=== PATIENT | male | born 1975 | race Caucasian/White ===

== ENCOUNTER 2018-07-14 10:52 | Emergency (ER) | payer BC ==
[2018-07-14] MEDS ORDERED: Ketorolac 60 MG/2 ML SDV IM ONE (11:32)
[2018-07-14] MEDS ORDERED: Diphtheria,Pertussis(Acell),Tetanus Vaccine 0.5 ML SDV IM ONE (11:32)
--- NOTE | 2018-07-14 11:38 | EDM.PDOC ---
ED HPI GENERAL MEDICAL PROBLEM - General Chief Complaint: General Stated Complaint: FELL OFF A LADDER 10 FT Time Seen by Provider: 07/14/18 11:20 Source of Information: Reports: Patient, RN History Limitations: Reports: No Limitations - History of Present Illness INITIAL COMMENTS - FREE TEXT/NARRATIVE: 42 yo male visiting from [place] fell off the top of his camper before arrival landing prone on a deck. He hit his chest and chin. No LOC, but does report a BARKER and chin and L jaw pain. No SOB. No tx prior to arrival. Is not sure about tetanus. Is here with via private vehicle. No nausea. Teeth fit properly. Has some leg abrasions. Onset: Today Onset Date: 07/14/18 Onset Time: 10:15 Duration: Minutes:, Constant Location: Reports: Head, Face, Chest Quality: Reports: Ache (head) Severity: Moderate Improves with: Reports: None Worsens with: Reports: None Context: Reports: Trauma Associated Symptoms: Reports: Chest Pain, Headaches. Denies: Diaphoresis, Fever /Chills, Nausea/Vomiting, Shortness of Breath Treatments [employer]IATE: Reports: Other (see below) (none) - Related Data Allergies Allergy/AdvReac Type Severity Reaction Status Date / Time acetaminophen [From Tylenol] Allergy Hives Verified 07/14/18 11:11 Home Meds: Home Meds NK [No Known Home Meds] 07/14/18 [History] Past Medical History - Past Surgical History GI Surgical History: Reports: Cholecystectomy Social & Family History - Tobacco Use Smoking Status *Q: Never Smoker ED ROS GENERAL - Review of Systems Review Of Systems: See Below Constitutional: Reports: No Symptoms HEENT: Reports: No Symptoms. Denies: Dental Pain, Ear Discharge, Ear Pain, Hearing Loss, Nosebleed, Vertigo Respiratory: Reports: No Symptoms Cardiovascular: Reports: No Symptoms Endocrine: Reports: No Symptoms GI/Abdominal: Reports: No Symptoms Skin: Reports: Wound (anterior leg abrasions.) Neurological: Reports: Headache. Denies: Confusion, Dizziness, Numbness, Syncope, Difficulty Walking, Change in Speech, Gait Disturbance Psychiatric: Reports: No Symptoms ED EXAM, GENERAL - Physical Exam Exam: See Below Exam Limited By: No Limitations General Appearance: Alert, WD/WN, No Apparent Distress Eye Exam: Bilateral Eye: Normal Inspection Ears: Normal External Exam, Normal Canal, Hearing Grossly Normal, Normal TMs Ear Exam: Bilateral Ear: Auricle Normal, Canal Normal, TM normal Nose: Normal Inspection, Normal Mucosa, No Blood Throat/Mouth: Normal Inspection, Normal Lips, Normal Teeth, Normal Oropharynx, Normal Voice, No Airway Compromise Head: Atraumatic, Normocephalic Neck: Normal Inspection, Supple, Non-Tender Respiratory/Chest: No Respiratory Distress, Lungs Clear, Normal Breath Sounds, No Accessory Muscle Use Cardiovascular: Regular Rate, Rhythm, No Edema GI/Abdominal: Normal Bowel Sounds, Soft, Non-Tender, No Distention Back Exam: Normal Inspection Extremities: Normal Range of Motion, Non-Tender, No Pedal Edema, Other (non- bleeding abrasions present to bilat. anterior legs.) Neurological: Alert, Oriented, CN II-XII Intact, Normal Cognition, No Motor/ Sensory Deficits Psychiatric: Normal Affect, Normal Mood Skin Exam: Warm, Dry, Normal Color, No Rash, Wound/Incision (anterior leg abrasions bilaterally.) Course - Vital Signs Last Recorded V/S: Last Vital Signs Temp 35.7 C 07/14/18 11:21 Pulse 60 07/14/18 11:21 Resp 17 07/14/18 11:21 BP 123/61 07/14/18 11:21 Pulse Ox 99 07/14/18 11:21 - Orders/Labs/Meds Orders: Active Orders 24 hr Category Date Time Status Vaccines to be Administered [RC] PER UNIT ROUTINE Care 07/14/18 11:32 Active Chest 1V Frontal [CR] Stat Exams 07/14/18 11:32 Taken Meds: Medications Discontinued Medications Generic Name Dose Route Start Last Admin Trade Name Florence PRN Reason Stop Dose Admin Diphtheria/Tetanus/Acell Pertussis 0.5 ml 07/14/18 11:32 07/14/18 11:43 Adacel IM 07/14/18 11:33 0.5 ml .ONCE ONE Administration Ketorolac Tromethamine 60 mg 07/14/18 11:32 07/14/18 11:42 Toradol IM 07/14/18 11:33 60 mg ONETIME ONE Administration - Radiology Interpretation Free Text/Narrative:: CXR-neg Departure - Departure Time of Disposition: 12:20 Disposition: Home, Self-Care 01 Condition: Good Clinical Impression: Sternal contusion Qualifiers: Encounter type: initial encounter Qualified Code(s): S20.219A - Contusion of unspecified front wall of thorax, initial encounter Mild concussion Qualifiers: Encounter type: initial encounter Loss of consciousness presence/duration: without LOC Qualified Code(s): S06.0X0A - Concussion without loss of consciousness, initial encounter Lower leg abrasion Qualifiers: Encounter type: initial encounter Laterality: unspecified laterality Qualified Code(s): S80.819A - Abrasion, unspecified lower leg, initial encounter - Discharge Information *PRESCRIPTION DRUG MONITORING PROGRAM REVIEWED*: No *COPY OF PRESCRIPTION DRUG MONITORING REPORT IN PATIENT JUSTINO: No Instructions: Head Injury, Adult, [id number] Referrals: PCP,None [Primary Care Provider] - Forms: ED Department Discharge Additional Instructions: Acetaminophen as needed. Ibuprofen as needed after 6 pm today. Rest. Protect your head from further injury over the next several days. Recheck if worse. - My Orders Last 24 Hours: My Active Orders 07/14/18 11:32 Vaccines to be Administered [RC] PER UNIT ROUTINE Chest 1V Frontal [CR] Stat - Assessment/Plan Last 24 Hours: My Active Orders 07/14/18 11:32 Vaccines to be Administered [RC] PER UNIT ROUTINE Chest 1V Frontal [CR] Stat
--- NOTE | 2018-07-14 12:53 | CRLCR ---
INDICATION: fall with sternal tenderness COMPARISON: None available. FINDINGS: Single frontal view of the chest demonstrates adequate inflation of the lungs. No focal airspace consolidation, pneumothorax or effusion. Cardiomediastinal silhouette is within normal limits. No acute osseous findings. - IMPRESSION: Negative single frontal view of the chest. - Given the provided history, consider lateral view for evaluation of the sternum, as clinically warranted. Dictated by Eleuteroi Gilmore MD @ 07/14/2018 12:51:02 PM Dictated by: Eleuterio Gilmore MD @ 07/14/2018 12:51:11 (Electronically Signed)
== END 2018-07-14 12:23 | disposition home or self-care (01) ==
LOC: JP.ED 10:52
DX: S06.0X0A Concussion without loss of consciousness, initial encounter (principal); S20.219A Contusion of unspecified front wall of thorax, initial encounter; S80.819A Abrasion, unspecified lower leg, initial encounter; Z23 Encounter for immunization; Z88.6 Allergy status to analgesic agent; W17.89XA Other fall from one level to another, initial encounter
CPT/HCPCS: 71045; 90471; 90715; 96372; 99284; J1885